=== PATIENT | male | born 1955 | race Caucasian/White ===

== ENCOUNTER 2017-06-18 16:02 | Emergency (ER) | payer MEDICARE, MEDICAID ==
[~2017-06-18] VITALS: Ht 170.2 cm; Wt 92.0 kg
[~2017-06-18 16:02] MED LIST: GUAI120L55 PO; HYDR-569 PO
[2017-06-18] MEDS ORDERED: methylPREDNISolone sod succ 125mg/2ml vial IV ONE (16:25)
[2017-06-18] MEDS ORDERED: ipratropium/albuterol 3ml nebule NEB ONE (16:25)
[2017-06-18 16:47] LABS: BASOPHILS # (AUTO) 0.1 X10'3 (0-0.2); BASOPHILS % (AUTO) 0.6 % (0-1); EOSINOPHILS # (AUTO) 0.5 X10'3 (0-0.9); EOSINOPHILS % (AUTO) 5.4 % (0-6); HEMATOCRIT 42.8 % (42.0-52.0); HEMOGLOBIN 14.5 g/dl (14.0-17.9); LYMPHOCYTES # (AUTO) 1.6 X10'3 (1.1-4.8); LYMPHOCYTES % (AUTO) 18.5 % (21-51); MEAN CORPUSCULAR HEMOGLOBIN 31.5 PG (27.0-31.0); MEAN CORPUSCULAR HGB CONC 33.9 % (33.0-36.5); MEAN CORPUSCULAR VOLUME 92.8 FL (78-98); MEAN PLATELET VOLUME 8.3 FL (7.4-10.4); MONOCYTES # (AUTO) 0.6 X10'3 (0-0.9); NEUTROPHILS # (AUTO) 5.9 X10'3 (1.8-7.7); NEUTROPHILS % (AUTO) 68.5 % (42-75); PLATELET COUNT 294 X10'3 (140-440); RED BLOOD COUNT 4.62 X10'6 (4.70-6.10); RED CELL DISTRIBUTION WIDTH 13.6 % (11.5-14.5); WHITE BLOOD COUNT 8.6 X10'3 (4.5-11.0)
[2017-06-18 16:57] LABS: PARTIAL THROMBOPLASTIN TIME 27 SECONDS (22-32)
[2017-06-18 17:11] LABS: ALANINE AMINOTRANSFERASE 24 U/L (12-78); ALBUMIN 3.6 G/DL (3.4-5.0); ALKALINE PHOSPHATASE 87 IU/L (46-116); ANION GAP 8 (8-16); ASPARTATE AMINO TRANSFERASE 12 U/L (10-37); BILIRUBIN,TOTAL 0.3 MG/DL (0.1-1.0); BLOOD UREA NITROGEN 12 MG/DL (7-18); BUN/CREATININE RATIO 7.7 (5.4-32.0); CALCIUM 8.1 MG/DL (8.5-10.1); CHLORIDE 107 MMOL/L (99-107); CREATININE 1.55 MG/DL (0.60-1.10); GLUCOSE 157 MG/DL (70-104); POTASSIUM 3.8 MMOL/L (3.5-5.1); SODIUM 143 MMOL/L (135-145); TOTAL CARBON DIOXIDE 28.4 MMOL/L (24-32); TOTAL PROTEIN 7.1 G/DL (6.4-8.2); eGFR 46 ML/MIN
[2017-06-18 19:07] LABS: CLARITY,URINE CLEAR (Clear); COLOR,URINE YELLOW (Yellow); GLUCOSE, URINE NEGATIVE (Neg); KETONES,URINE NEGATIVE (Neg); LEUKOCYTE ESTERASE ,URINE NEGATIVE (Neg); NITRITES, URINE NEGATIVE (Neg); OCCULT BLOOD,URINE NEGATIVE (Neg); PH,URINE 6.5 (4.8-8.0); PROTEIN,URINE NEGATIVE (Neg); UROBILINOGEN,URINE 0.2 E.U/dL (0.2-1.0)
[2017-06-18 19:12] LABS: UA COLLECTION TYPE CLN CATCH MIDSTREAM
[2017-06-18] MEDS ORDERED: AZIT-63 PO (21:12)
[2017-06-18] MEDS ORDERED: ALBU6.7H INH (21:12)
[2017-06-18] MEDS ORDERED: PRED20TA PO (21:12)
[2017-06-18 21:15] VITALS: BP 161/91
== END 2017-06-18 21:30 | disposition home or self-care (01) ==
LOC: ER 16:03
DX: J40 Bronchitis, not specified as acute or chronic (principal); F17.200 Nicotine dependence, unspecified, uncomplicated; I25.2 Old myocardial infarction; Z87.01 Personal history of pneumonia (recurrent); Z87.442 Personal history of urinary calculi; Z79.899 Other long term (current) drug therapy
CPT/HCPCS: 36415; 71045; 80053; 81003; 83880; 84484; 85025; 85610; 85730; 87502; 87503; 93005; 94640; 94760; 96374; 99285; J2930

== ENCOUNTER 2017-10-06 11:45 | Emergency (ER) | payer MEDICARE, MEDICAID ==
[~2017-10-06] VITALS: Ht 170.2 cm; Wt 100.0 kg
[~2017-10-06 11:45] MED LIST changes: +ALBU6.7H INH
[2017-10-06] MEDS ORDERED: diazepam 5mg tablet PO ONE (12:30)
[2017-10-06] MEDS ORDERED: ketorolac tromethamine 15mg/ml inj. IM ONE (12:30)
[2017-10-06] MEDS ORDERED: METH-360 PO (12:38)
[2017-10-06] MEDS ORDERED: IBUP-1985 PO (12:38)
[2017-10-06 12:52] VITALS: BP 164/111
== END 2017-10-06 12:55 | disposition home or self-care (01) ==
LOC: ER 11:45
DX: M54.41 Lumbago with sciatica, right side (principal); F17.210 Nicotine dependence, cigarettes, uncomplicated; Z79.899 Other long term (current) drug therapy
CPT/HCPCS: 96372; 99283; J1885

== ENCOUNTER 2019-06-04 00:16 | Emergency (ER) | payer MEDICAID, MEDICARE ==
[~2019-06-04] VITALS: Ht 170.2 cm; Wt 86.3 kg
[~2019-06-04 00:16] MED LIST changes: -ALBU6.7H INH; +ALBU6.7H9 INH; +HYDR-4383 PO; -HYDR-569 PO; +IBUP-1985 PO; +METH-360 PO
[2019-06-04 00:41] LABS: BASOPHILS # (AUTO) 0.1 X10'3 (0-0.2); BASOPHILS % (AUTO) 0.9 % (0-1); EOSINOPHILS # (AUTO) 0.5 X10'3 (0-0.9); EOSINOPHILS % (AUTO) 3.4 % (0-6); HEMATOCRIT 40.4 % (42.0-52.0); HEMOGLOBIN 14.3 g/dl (14.0-17.9); LYMPHOCYTES # (AUTO) 2.3 X10'3 (1.1-4.8); LYMPHOCYTES % (AUTO) 16.7 % (21-51); MEAN CORPUSCULAR HEMOGLOBIN 32.4 PG (27.0-31.0); MEAN CORPUSCULAR HGB CONC 35.3 g/dL (33.0-36.5); MONOCYTES % (AUTO) 7.5 % (2-12); NEUTROPHILS # (AUTO) 9.7 X10'3 (1.8-7.7); NEUTROPHILS % (AUTO) 71.5 % (42-75); PLATELET COUNT 355 X10'3 (140-440); RED CELL DISTRIBUTION WIDTH 12.7 % (11.5-14.5); WHITE BLOOD COUNT 13.6 X10'3 (4.5-11.0)
[2019-06-04 00:55] LABS: ALANINE AMINOTRANSFERASE 20 U/L (12-78); ALBUMIN 3.7 G/DL (3.4-5.0); ALBUMIN/GLOBULIN RATIO 0.9 (1.1-1.5); ALKALINE PHOSPHATASE 117 IU/L (46-116); ANION GAP 5 (8-16); ASPARTATE AMINO TRANSFERASE 9 U/L (10-37); BILIRUBIN,TOTAL 0.2 MG/DL (0.1-1.0); BLOOD UREA NITROGEN 24 MG/DL (7-18); BUN/CREATININE RATIO 12.9 (5.4-32.0); CALCIUM 8.6 MG/DL (8.5-10.1); CHLORIDE 104 MMOL/L (99-107); CREATININE 1.86 MG/DL (0.60-1.10); GLUCOSE 154 MG/DL (70-104); POTASSIUM 3.6 MMOL/L (3.5-5.1); SODIUM 140 MMOL/L (135-145); TOTAL CARBON DIOXIDE 31.5 MMOL/L (24-32); TOTAL PROTEIN 7.7 G/DL (6.4-8.2); eGFR 37 ML/MIN
[2019-06-04] MEDS ORDERED: ketorolac tromethamine 15mg/ml inj. IM ONE (01:25)
[2019-06-04] MEDS ORDERED: diazepam 5mg tablet PO ONE (01:25)
[2019-06-04] MEDS ORDERED: PRED20TA PO (01:27)
[2019-06-04] MEDS ORDERED: METH-360 PO (01:27)
[2019-06-04] MEDS ORDERED: ALBU18HF2 INH (01:27)
[2019-06-04] MEDS ORDERED: DOXY100C43 PO (01:27)
[2019-06-04 01:33] VITALS: BP 150/113
== END 2019-06-04 01:46 | disposition home or self-care (01) ==
LOC: ER 00:17
DX: S29.012A Strain of muscle and tendon of back wall of thorax, initial encounter (principal); J20.9 Acute bronchitis, unspecified; N18.9 Chronic kidney disease, unspecified; F17.210 Nicotine dependence, cigarettes, uncomplicated; F12.90 Cannabis use, unspecified, uncomplicated; Z86.14 Personal history of Methicillin resistant Staphylococcus aureus infection; Z79.899 Other long term (current) drug therapy; X50.1XXA Overexertion from prolonged static or awkward postures, initial encounter; Y93.89 Activity, other specified; Y92.89 Other specified places as the place of occurrence of the external cause; Y99.8 Other external cause status
CPT/HCPCS: 36415; 71045; 80053; 84484; 85025; 93005; 96372; 99284; 99406; J1885; 94760

== ENCOUNTER 2019-10-05 00:39 | Inpatient (IN) | payer MEDICARE, MEDICAID ==
[2019-10-05] VITALS (14 sets, daily range): BP systolic 131–154; BP diastolic 66–103
[~2019-10-05] VITALS: Ht 170.2 cm; Wt 86.4 kg
[~2019-10-05 00:39] MED LIST changes: +ALBU18HF2 INH
[2019-10-05] MEDS ORDERED: NO HOME MEDS (01:31)
[2019-10-05 01:36] LABS: BASOPHILS # (AUTO) 0.1 X10'3 (0-0.2); EOSINOPHILS # (AUTO) 0.6 X10'3 (0-0.9); EOSINOPHILS % (AUTO) 4.6 % (0-6); HEMATOCRIT 42.1 % (42.0-52.0); HEMOGLOBIN 14.4 g/dl (14.0-17.9); LYMPHOCYTES # (AUTO) 2.3 X10'3 (1.1-4.8); LYMPHOCYTES % (AUTO) 18.3 % (21-51); MEAN CORPUSCULAR HEMOGLOBIN 31.4 PG (27.0-31.0); MEAN CORPUSCULAR HGB CONC 34.2 g/dL (33.0-36.5); MEAN CORPUSCULAR VOLUME 91.6 FL (78-98); MEAN PLATELET VOLUME 8.4 FL (7.4-10.4); MONOCYTES # (AUTO) 1.1 X10'3 (0-0.9); MONOCYTES % (AUTO) 8.8 % (2-12); NEUTROPHILS # (AUTO) 8.4 X10'3 (1.8-7.7); NEUTROPHILS % (AUTO) 67.3 % (42-75); PLATELET COUNT 285 X10'3 (140-440); RED BLOOD COUNT 4.59 X10'6 (4.70-6.10); RED CELL DISTRIBUTION WIDTH 13.4 % (11.5-14.5); WHITE BLOOD COUNT 12.5 X10'3 (4.5-11.0)
[2019-10-05 01:37] LABS: PARTIAL THROMBOPLASTIN TIME 27 SECONDS (22-32)
[2019-10-05 01:38] LABS: URINE AMPHETAMINE SCREEN POSITIVE (Neg); URINE BARBITUATE SCREEN NEGATIVE (Neg); URINE BENZODIAZEPINES SCREEN NEGATIVE (Neg); URINE CANNABINOID SCREEN NEGATIVE (Neg); URINE COCAINE SCREEN NEGATIVE (Neg); URINE METHADONE SCREEN NEGATIVE (Neg); URINE OPIATE SCREEN NEGATIVE (Neg); URINE PHENCYCLIDINE SCREEN NEGATIVE (Neg)
[2019-10-05 01:42] LABS: ALANINE AMINOTRANSFERASE 21 U/L (12-78); ALBUMIN 3.4 G/DL (3.4-5.0); ALBUMIN/GLOBULIN RATIO 0.9 (1.1-1.5); ALKALINE PHOSPHATASE 108 IU/L (46-116); ANION GAP 10 (8-16); ASPARTATE AMINO TRANSFERASE 55 U/L (10-37); BILIRUBIN,TOTAL 0.2 MG/DL (0.1-1.0); BLOOD UREA NITROGEN 19 MG/DL (7-18); BUN/CREATININE RATIO 11.2 (5.4-32.0); CALCIUM 8.7 MG/DL (8.5-10.1); CHLORIDE 105 MMOL/L (99-107); CREATININE 1.69 MG/DL (0.60-1.10); GLUCOSE 137 MG/DL (70-104); SODIUM 144 MMOL/L (135-145); TOTAL CARBON DIOXIDE 29.5 MMOL/L (24-32); TOTAL PROTEIN 7.2 G/DL (6.4-8.2); eGFR 41 ML/MIN
[2019-10-05 01:43] LABS: POTASSIUM 3.7 MMOL/L (3.5-5.1)
[2019-10-05] MEDS ORDERED: heparin 10,000 units/1 ML INJ IV ONE ×2 (01:45→01:55)
[2019-10-05] MEDS ORDERED: heparin 10,000 units/1 ML INJ IV PRN ×2 (01:45→02:10)
[2019-10-05] MEDS ORDERED: aspirin 81mg tab.chew PO ONE (01:50)
[2019-10-05] MEDS ORDERED: nitroGLYCERIN 0.4mg SUBLingual tab SL PRN ×2 (01:50→02:10)
[2019-10-05 01:51] LABS: LIPASE 277 U/L (73-393)
[2019-10-05] MEDS ORDERED: nitroGLYCERIN-Tridil 50MG/D5W 250 ML IV SCH (02:05)
[2019-10-05] MEDS: heparin 25,000 UNIT/250ml bag 250 ML IV SCH ×2 (02:08→11:12)
[2019-10-05] MEDS ORDERED: magnesium Cl slow-release 64mg tablet PO PRN (02:10)
[2019-10-05] MEDS ORDERED: potassium Cl 20 mEq SR tablet PO PRN ×2 (02:10)
[2019-10-05] MEDS ORDERED: HYDROcodone/acetaminophen 5mg/325mg tablet PO PRN (02:10)
[2019-10-05] MEDS ORDERED: magnesium hydroxide 30ml (MOM) UD suspension PO PRN (02:10)
[2019-10-05] MEDS ORDERED: nitroGLYCERIN 0.4mg/hour patch TD SCH (02:10)
[2019-10-05] MEDS ORDERED: morphine 2 MG/ML inj. syringe IV PRN ×2 (02:10)
[2019-10-05] MEDS ORDERED: ondansetron/PF 4mg/2ml inj IV PRN (02:10)
[2019-10-05] MEDS ORDERED: magnesium 4gm in 100ml NS 100 ML IV PRN (02:10)
[2019-10-05] MEDS ORDERED: bisacodyl 10mg suppository rectal RC PRN (02:10)
[2019-10-05] MEDS ORDERED: mag hydrox/Alum hydrox/simeth 30ml oral suspension PO PRN (02:10)
[2019-10-05] MEDS ORDERED: acetaminophen 325mg tablet PO PRN ×2 (02:10)
[2019-10-05] MEDS ORDERED: magnesium 2GM in 50ml NS 50 ML IV PRN (02:10)
[2019-10-05] MEDS ORDERED: LORazepam 0.5 MG tablet PO PRN (02:10)
[2019-10-05] MEDS ORDERED: heparin 25,000 UNIT/250ml bag 250 ML IV SCH (02:10)
[2019-10-05] MEDS ORDERED: metoclopramide 5 mg/ml inj IV PRN (02:10)
[2019-10-05] MEDS ORDERED: potassium CL 10mEq/100ml bag 100 ML IV PRN ×2 (02:10)
[2019-10-05] MEDS ORDERED: normal saline 1000ML IV soln IVB ONE (02:30)
--- NOTE | 2019-10-05 04:19 | NUR ---
PAGE SENT TO DR. SANTIAGO 8341X - Jacobo Killian 63/M - NSTEMI on heparin gtt, recieved in ER report that pt had potential reaction to subling nitro x1 sammi/junct. Pt now NSR, v/ss, Pt in 06/21 sternal chestpain. Still want nitro-patch to be placed? .[phone] Freddy LOVE Addendum: 10/05/19 at 0426 by Clayton Escudero RN Discussed patient status with Doctor Elieser Nitro patch discontinued, Protonix and maalox ordered. Will continue to monitor.
[2019-10-05] MEDS: normal saline 1000ml 1,000 ML IV SCH ×3 (04:32→22:10)
--- NOTE | 2019-10-05 04:57 | NUR ---
3024B - Jacobo Killian 63/M - NSTEMI on heparin gtt - HYPERTENSIVE EPISODE 170-180s systolic blood pressure. Need PRN antihypertensive medication. [phone] Freddy RN
[2019-10-05] MEDS: metoprolol succinate 25mg (24-HOUR) SR. Tablet PO SCH ×2 (05:11→19:24)
--- NOTE | 2019-10-05 06:25 | NUR ---
Problems reprioritized. Patient report given, questions answered & plan of care reviewed with Merary LOVE.
--- NOTE | 2019-10-05 06:29 | NUR ---
Talked to Dr. Mon about Elevated trop - discussed wants me to admin scheduled AM maalox now.
--- NOTE | 2019-10-05 06:30 | NUR ---
Patient in room PCU 3024. I have received report from Freddy LOVE and had the opportunity to ask questions and assume patient care.
[2019-10-05] MEDS: mag hydrox/Alum hydrox/simeth 30ml oral suspension PO SCH ×3 (06:33→19:24)
[2019-10-05] MEDS: tirofiban 5mg in NS 100mL 100 ML IV SCH ×3 (06:48→12:50)
--- NOTE | 2019-10-05 06:49 | NUR ---
Chest pain rated at 4/10 burning sternal post admin of morphine - Aggrastat loading dose started Addendum: 10/05/19 at 0701 by Clayton Escudero RN Aggrastat mat. dose per pharm is 7.5ml/hr due to <53 CrCl
[2019-10-05] MEDS: pantoprazole 40 MG vial IV SCH (07:21)
[2019-10-05] MEDS: atorvastatin 20mg tablet PO SCH (07:21)
[2019-10-05] MEDS ORDERED: nitroGLYCERIN 0.1mg/hour patch TD SCH (08:00)
[2019-10-05] MEDS: K and/or MAG REPLACEMENT MC SCH ×2 (08:00→20:00)
--- NOTE | 2019-10-05 08:14 | NUR ---
PAGER ID: [phone] MESSAGE: [id number] Monet Killian 6HR Trop back at 9.88. FYI. Reagan [phone]
[2019-10-05] MEDS ORDERED: aspirin 325mg tablet PO SCH (08:30)
--- NOTE | 2019-10-05 10:25 | NUR ---
Pt with A1c 7.0% however no documented hx diabetes in [facility]. D/w RN that RD is unable to provide DM education until pt has received diagnosis by MD. Pt admitted with NSTEMI. Pt not med compliant and continues to smoke and intermittently uses illicit drugs per H&P. Pt currently NPO. LBM 10/03. No edema or wounds. Will continue to follow and provide DM education once pt has been given a diagnosis. Recommendations: 1) Advance to heart healthy CHO controlled diet as medically indicated 2) Provide DM education once pt given dx by MD 3) Bowel care PRN 4) Wt per rx Addendum: 10/05/19 at [address] Amended: Links added.
--- NOTE | 2019-10-05 11:34 | NUR ---
PAGER ID: [phone] MESSAGE: [id number] Ingrid Killian. A1c at 7.0. Per pt has no hx of DM. Dietary states that in order for them to provide education on DM, they will need you to dx him first. Just YONY Reagan [phone]
[2019-10-05] MEDS ORDERED: iohexol 350MG/ML 100ml bottle IV ONE (12:38)
[2019-10-05] MEDS ORDERED: LIDOcaine 1% (10mg/ml)w/preservative injection 20ml MDV ONE (12:38)
[2019-10-05] MEDS ORDERED: iohexol 350 MG/ML 50ML vial IV ONE ×2 (12:38→13:21)
[2019-10-05] MEDS ORDERED: fentaNYL/PF 50MCG/1 ML 2ML syringe ONE (12:39)
[2019-10-05] MEDS ORDERED: midazolam 2 mg/2 ml injection ONE (12:39)
[2019-10-05] MEDS ORDERED: diphenhydrAMINE 50 mg/ml inj ONE (13:01)
--- NOTE | 2019-10-05 13:10 | NUR ---
PAGER ID: [phone] MESSAGE: [id number] Monet Killian 12hr Trop 13.21. 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 Unable to obtain EKG for 12Hr Trop. Just YONY. Merary [phone]
--- NOTE | 2019-10-05 13:34 | NUR ---
Received call back from GUILLE Mon MD that pt. did not get 12Hr trop EKG done.
[2019-10-05 14:01] LABS: ISTAT HGB ART 11.2 g/dl (14.0-18.0); ISTAT Hct ART 33 %PCV (42-52); ISTAT O2 SATURATION ARTERIAL 98 % (95-98); ISTAT SOURCE ART
[2019-10-05 14:01] LABS: ISTAT Hct MIX 33 %PCV (42-52); ISTAT O2 SATURATION MIX VENOUS 70 % (60-80); ISTAT SOURCE MIX
[2019-10-05] MEDS: HYDROcodone/acetaminophen 10/325mg tab PO PRN ×2 (14:20→19:24)
[2019-10-05] MEDS ORDERED: sodium chloride 0.45% 1,000 ML IV ONE (15:00)
[2019-10-05] MEDS ORDERED: proCHLORperazine 10 MG/2 ml inj IV PRN (16:05)
[2019-10-05] MEDS ORDERED: OXAZEpam 15mg capsule PO PRN (16:10)
[2019-10-05] MEDS ORDERED: clopidogrel 75mg tablet PO ONE (16:10)
[2019-10-05] MEDS ORDERED: clopidogrel 300mg tablet PO ONE (16:10)
--- NOTE | 2019-10-05 16:41 | NUR ---
Attempted to call back Charo to provide update. Per pt. ok to give info. Voice mailbox full.
[2019-10-05] MEDS ORDERED: insulin Lispro (HumaLOG) vial - multi-dose SQ SCH (16:55)
[2019-10-05] MEDS ORDERED: glucagon, human recombinant 1mg kit SUBCUT PRN (16:55)
[2019-10-05] MEDS ORDERED: MESSAGE TO PHARMACY PO ONE (16:55)
[2019-10-05] MEDS ORDERED: dextrose ORAL solution 15 GM/59 ML bottle PO PRN ×2 (16:55)
[2019-10-05] MEDS ORDERED: dextrose 50%-water 50ml dispensing syringe IV PRN ×2 (16:55)
--- NOTE | 2019-10-05 17:33 | NUR ---
Pt had late tray right before orders for AC/HS were put in. 17:00 check will not be an accurate result if drawn. Will pass on to TRISHA kumar. Addendum: 10/05/19 at 1736 by Stephanie Petersen RN Amended: Links added.
--- NOTE | 2019-10-05 18:23 | NUR ---
Problems reprioritized. Patient report given, questions answered & plan of care reviewed with Freddy RN.
--- NOTE | 2019-10-05 18:25 | NUR ---
Problems reprioritized. Patient report given, questions answered & plan of care reviewed with Merary LOVE.
[2019-10-05] MEDS: insulin glargine (Lantus) pen - multi-dose SQ SCH (21:00)
[2019-10-05] MEDS ORDERED: temazepam 15mg capsule PO PRN (21:00)
[2019-10-06] VITALS (7 sets, daily range): BP systolic 112–175; BP diastolic 58–96
[2019-10-06] MEDS: mag hydrox/Alum hydrox/simeth 30ml oral suspension PO SCH ×4 (02:52→19:42)
[2019-10-06 06:08] LABS: BASOPHILS # (AUTO) 0.1 X10'3 (0-0.2); BASOPHILS % (AUTO) 0.4 % (0-1); EOSINOPHILS # (AUTO) 0.3 X10'3 (0-0.9); EOSINOPHILS % (AUTO) 1.8 % (0-6); HEMATOCRIT 37.5 % (42.0-52.0); HEMOGLOBIN 12.7 g/dl (14.0-17.9); LYMPHOCYTES # (AUTO) 1.7 X10'3 (1.1-4.8); LYMPHOCYTES % (AUTO) 11.6 % (21-51); MEAN CORPUSCULAR HEMOGLOBIN 31.4 PG (27.0-31.0); MEAN CORPUSCULAR VOLUME 92.4 FL (78-98); MEAN PLATELET VOLUME 8.6 FL (7.4-10.4); MONOCYTES # (AUTO) 1.5 X10'3 (0-0.9); MONOCYTES % (AUTO) 10.1 % (2-12); NEUTROPHILS % (AUTO) 76.1 % (42-75); PLATELET COUNT 239 X10'3 (140-440); RED BLOOD COUNT 4.06 X10'6 (4.70-6.10); RED CELL DISTRIBUTION WIDTH 13.4 % (11.5-14.5); WHITE BLOOD COUNT 14.5 X10'3 (4.5-11.0)
[2019-10-06 06:26] LABS: ALANINE AMINOTRANSFERASE 30 U/L (12-78); ALBUMIN/GLOBULIN RATIO 0.8 (1.1-1.5); ALKALINE PHOSPHATASE 88 IU/L (46-116); ANION GAP 8 (8-16); ASPARTATE AMINO TRANSFERASE 103 U/L (10-37); BILIRUBIN,TOTAL 0.8 MG/DL (0.1-1.0); BLOOD UREA NITROGEN 19 MG/DL (7-18); CALCIUM 8.3 MG/DL (8.5-10.1); CHLORIDE 103 MMOL/L (99-107); CHOL/HDL RATIO 3.4 (0.00-4.99); CHOLESTEROL 168 MG/DL (0-200); CREATININE 1.46 MG/DL (0.60-1.10); GLUCOSE 146 MG/DL (70-104); HDL CHOLESTEROL 49 MG/DL (35-60); LDL CHOLESTEROL 104 MG/DL (50-100); MAGNESIUM 1.9 MG/DL (1.5-2.4); POTASSIUM 3.7 MMOL/L (3.5-5.1); SODIUM 138 MMOL/L (135-145); TOTAL CARBON DIOXIDE 27.1 MMOL/L (24-32); TOTAL PROTEIN 6.7 G/DL (6.4-8.2); TRIGLYCERIDES 113 MG/DL (20-135); eGFR 49 ML/MIN
--- NOTE | 2019-10-06 06:30 | NUR ---
Patient in room PCU 3024. I have received report from IVAN TONEY and had the opportunity to ask questions and assume patient care.
--- NOTE | 2019-10-06 06:42 | NUR ---
Problems reprioritized. Patient report given, questions answered & plan of care reviewed with Bienvenido RN
[2019-10-06] MEDS: K and/or MAG REPLACEMENT MC SCH ×2 (08:00→20:00)
[2019-10-06] MEDS: pantoprazole 40 MG vial IV SCH (08:06)
[2019-10-06] MEDS: aspirin 81mg tablet.DR PO SCH (08:06)
[2019-10-06] MEDS: atorvastatin 20mg tablet PO SCH (08:07)
[2019-10-06] MEDS: amLODIPine 2.5mg tablet PO SCH (08:08)
[2019-10-06] MEDS: clopidogrel 75mg tablet PO SCH (08:08)
[2019-10-06] MEDS: metoprolol succinate 25mg (24-HOUR) SR. Tablet PO SCH ×2 (08:09→19:42)
--- NOTE | 2019-10-06 08:58 | NUR ---
PAGER ID: [phone] MESSAGE: DR. NAGY, [id number], + MRSA NASAL SWAB. SCOTT [id number]. TY.
[2019-10-06] MEDS: HYDROcodone/acetaminophen 10/325mg tab PO PRN (10:22)
--- NOTE | 2019-10-06 14:05 | NUR ---
PAGER ID: [phone] MESSAGE: DR. NAGY, [id number]/OBAR, HAS A HX OF COPD. WAS ON ALBUTEROL AT HOME, BUT MED REC SAYS NO LONGER TAKES. TODAY, I DO HEAR EXPIRATORY WHEEZE. SAT REMAINS ADEQUATE ON RA. WANT AN RT EVAL? SCOTT [phone]. TY
--- NOTE | 2019-10-06 14:30 | NUR ---
PAGER ID: [phone] MESSAGE: DR. NAGY, SKY HAIR SPINNING MACHINE OPERATOR CALLED, ASKED ME TO ASK YOU IF YOU WOULD TALK TO MR QUEVEDO REGARDING A NEW DX OF DIABETES? SCOTT [id number]/[phone]. TY
--- NOTE | 2019-10-06 14:34 | NUR ---
PAGER ID: [phone] MESSAGE: MESSAGE: DR. NAGY, SKY DATA SPECIALIST CALLED, ASKED ME TO ASK YOU IF YOU WOULD TALK TO MR QUEVEDO REGARDING A NEW DX OF DIABETES? SCOTT [phone]. TY
--- NOTE | 2019-10-06 14:47 | NUR ---
PAGED RT : 3024B HAS NEW RT EVAL AND TREAT ORDERS. HX COPD AND HAS SOME EXP WHEEZES TODAY. RA SAT ADEQUATE. SCOTT ACUNA [phone].
[2019-10-06] MEDS ORDERED: albuterol 2.5 MG/3 ML nebule NEB PRN (16:00)
--- NOTE | 2019-10-06 18:25 | NUR ---
Problems reprioritized. Patient report given, questions answered & plan of care reviewed with IVAN ALARCON.
--- NOTE | 2019-10-06 18:30 | NUR ---
Patient in room PCU 3024. I have received report from Bienvenido LOVE and had the opportunity to ask questions and assume patient care.
[2019-10-06] MEDS: insulin glargine (Lantus) pen - multi-dose SQ SCH (21:30)
[2019-10-07 01:51] VITALS: BP 111/57
[2019-10-07] MEDS: mag hydrox/Alum hydrox/simeth 30ml oral suspension PO SCH ×3 (03:46→14:11)
[2019-10-07 05:42] LABS: BASOPHILS # (AUTO) 0.1 X10'3 (0-0.2); BASOPHILS % (AUTO) 0.5 % (0-1); EOSINOPHILS # (AUTO) 0.3 X10'3 (0-0.9); EOSINOPHILS % (AUTO) 2.3 % (0-6); HEMATOCRIT 34.8 % (42.0-52.0); HEMOGLOBIN 11.7 g/dl (14.0-17.9); LYMPHOCYTES # (AUTO) 1.6 X10'3 (1.1-4.8); LYMPHOCYTES % (AUTO) 11.6 % (21-51); MEAN CORPUSCULAR HEMOGLOBIN 31.1 PG (27.0-31.0); MEAN CORPUSCULAR HGB CONC 33.7 g/dL (33.0-36.5); MEAN CORPUSCULAR VOLUME 92.2 FL (78-98); MEAN PLATELET VOLUME 8.5 FL (7.4-10.4); MONOCYTES # (AUTO) 1.5 X10'3 (0-0.9); MONOCYTES % (AUTO) 11.1 % (2-12); NEUTROPHILS # (AUTO) 10.3 X10'3 (1.8-7.7); NEUTROPHILS % (AUTO) 74.5 % (42-75); PLATELET COUNT 216 X10'3 (140-440); RED BLOOD COUNT 3.78 X10'6 (4.70-6.10); RED CELL DISTRIBUTION WIDTH 13.2 % (11.5-14.5); WHITE BLOOD COUNT 13.8 X10'3 (4.5-11.0)
[2019-10-07 05:52] LABS: ALANINE AMINOTRANSFERASE 15 U/L (12-78); ALBUMIN 2.8 G/DL (3.4-5.0); ALBUMIN/GLOBULIN RATIO 0.8 (1.1-1.5); ALKALINE PHOSPHATASE 78 IU/L (46-116); ANION GAP 6 (8-16); ASPARTATE AMINO TRANSFERASE 66 U/L (10-37); BILIRUBIN,TOTAL 0.7 MG/DL (0.1-1.0); BLOOD UREA NITROGEN 22 MG/DL (7-18); BUN/CREATININE RATIO 13.7 (5.4-32.0); CALCIUM 8.4 MG/DL (8.5-10.1); CHLORIDE 104 MMOL/L (99-107); CREATININE 1.61 MG/DL (0.60-1.10); GLUCOSE 127 MG/DL (70-104); MAGNESIUM 2.3 MG/DL (1.5-2.4); POTASSIUM 3.8 MMOL/L (3.5-5.1); SODIUM 139 MMOL/L (135-145); TOTAL CARBON DIOXIDE 29.4 MMOL/L (24-32); TOTAL PROTEIN 6.5 G/DL (6.4-8.2); eGFR 44 ML/MIN
[2019-10-07 06:00] VITALS: BP 128/75
--- NOTE | 2019-10-07 06:28 | NUR ---
Problems reprioritized. Patient report given, questions answered & plan of care reviewed with Bienvenido RN.
--- NOTE | 2019-10-07 06:30 | NUR ---
Patient in room PCU 3024. I have received report from IVAN ALARCON and had the opportunity to ask questions and assume patient care.
[2019-10-07] MEDS: K and/or MAG REPLACEMENT MC SCH (08:00)
[2019-10-07] MEDS: pantoprazole 40 MG vial IV SCH (08:37)
[2019-10-07] MEDS: aspirin 81mg tablet.DR PO SCH (08:38)
[2019-10-07] MEDS: atorvastatin 20mg tablet PO SCH (08:38)
[2019-10-07] MEDS: clopidogrel 75mg tablet PO SCH (08:39)
[2019-10-07] MEDS: amLODIPine 2.5mg tablet PO SCH (08:39)
[2019-10-07] MEDS: metoprolol succinate 25mg (24-HOUR) SR. Tablet PO SCH (08:40)
[2019-10-07 11:00] VITALS: BP 116/76
[2019-10-07] MEDS ORDERED: METO-395 PO (11:52)
[2019-10-07] MEDS ORDERED: ASPI-1071 PO (11:52)
[2019-10-07] MEDS ORDERED: NITR0.4T51 SL (11:52)
[2019-10-07] MEDS ORDERED: METF500T20 PO (11:52)
[2019-10-07] MEDS ORDERED: ATOR20TA66 PO (11:52)
[2019-10-07] MEDS ORDERED: AMLO2.5T5 PO (11:52)
[2019-10-07] MEDS ORDERED: ALBU2.5V7 NEB (11:52)
[2019-10-07] MEDS ORDERED: CLOP75TA35 PO (11:52)
[2019-10-07] MEDS ORDERED: AMOX-419 PO (12:58)
--- NOTE | 2019-10-07 13:57 | NUR ---
DM consult re: newly diagnosed DM, spoke with bedside nurse and patient did receive DM education from nursing as well. Met with patient at bedside and given written DM education handout with verbal review and discussed what A1c is, types of carbs, carb counting, and portion sizes; pt states his does the cooking and makes amazing home made desserts. Discussed how his favorite carb containing foods can be portioned to include them and keep blood glucose under control. Discussed benefits of exercise, patient reports he is normally very active and will walk to the store which is a mile away from him home. Has a niece that is an RN and will assist patient with his DM management as well. Gave pt RD contact information. Addendum: 10/07/19 at [address] Amended: Links added.
--- NOTE | 2019-10-08 13:35 | NUR ---
Case management DC follow up: spoke to pt via telephone: reports "doing fine, stopped drinking, feel like that was the problem, beein in denial, I know what to do now". Denies acute/continuous cp, emergent general pain, SOB, resp distress, NV, dizziness, abd pain, GARCIA, blurry vision, syncope episodes, abnormal bruising/bleeding. Verbalizes understanding of s/s that warrant 9-11/ER visit for further evaluation. acknowledges need to follow up w/PCP/ specialist. pt states he has a primary doctor in private practice, but did not offer name of MD. Encouraged pt to follow up w/MD for needed referrals. pt acknowledged and agreed. Verbalizes understanding of new/current meds & why prescribed; pt states taking Rx as ordered, no ase noted r/t polypharmacy. needs met, questions answered at DC, no further questions at this time.
== END 2019-10-07 15:21 | disposition home or self-care (01) | DRG 281 ==
LOC: ER 00:39 → ED HOLD 02:10 → UNDOADMIN 02:22 → ED HOLD 02:22 → PCU 3S 03:02 → ED HOLD 03:02
PROVIDERS: ADMIT Family Medicine; ATTEND Internal Medicine
PROC: 4A023N8 Measurement of Cardiac Sampling and Pressure, Bilateral, Percutaneous Approach (ICD-10-PCS; principal; 2019-10-05)
PROC: B2111ZZ Fluoroscopy of Multiple Coronary Arteries using Low Osmolar Contrast (ICD-10-PCS; 2019-10-05)
PROC: B2151ZZ Fluoroscopy of Left Heart using Low Osmolar Contrast (ICD-10-PCS; 2019-10-05)
DX: I21.4 Non-ST elevation (NSTEMI) myocardial infarction (principal); I13.0 Hypertensive heart and chronic kidney disease with heart failure and stage 1 through stage 4 chronic kidney disease, or unspecified chronic kidney disease; N17.9 Acute kidney failure, unspecified; J44.1 Chronic obstructive pulmonary disease with (acute) exacerbation; N18.3 Chronic kidney disease, stage 3 (moderate); E11.22 Type 2 diabetes mellitus with diabetic chronic kidney disease; E78.5 Hyperlipidemia, unspecified; F15.10 Other stimulant abuse, uncomplicated; F17.210 Nicotine dependence, cigarettes, uncomplicated; I25.110 Atherosclerotic heart disease of native coronary artery with unstable angina pectoris; I50.9 Heart failure, unspecified; F41.9 Anxiety disorder, unspecified; K21.9 Gastro-esophageal reflux disease without esophagitis; Z79.84 Long term (current) use of oral hypoglycemic drugs; Z85.038 Personal history of other malignant neoplasm of large intestine; Z85.46 Personal history of malignant neoplasm of prostate; Z87.19 Personal history of other diseases of the digestive system; Z87.442 Personal history of urinary calculi; Z91.14 Patient's other noncompliance with medication regimen; Z91.19 Patient's noncompliance with other medical treatment and regimen; Z79.899 Other long term (current) drug therapy; Z71.51 Drug abuse counseling and surveillance of drug abuser; Z71.6 Tobacco abuse counseling
CPT/HCPCS: 36415; 71045; 80053; 80061; 80305; 82803; 82948; 83036; 83690; 83735; 83880; 84484; 85014; 85025; 85610; 85730; 87081; 93005; 93306; 93461; 94640; 94760; 96374; 99152; 99153; 99291; A4620; A6258; C1760; C1769; C9113; G0378; J1200; J1644; J1815; J2001; J2250; J2270; J3010; J3246; J7030; Q9967